=== PATIENT | female | born 1955 | race Caucasian/White ===

== ENCOUNTER 2016-04-01 18:05 | Emergency (ER) | payer SELFPAY ==
[~2016-04-01] VITALS: Ht 167.6 cm; Wt 80.7 kg
[2016-04-02] MEDS ORDERED: SODIUM CHLORIDE 0.9% 1,000 ML IV ONE (01:15)
[2016-04-02] MEDS ORDERED: PROMETHAZINE HCL 25 MG/ML 1ML IV ONE (01:15)
[2016-04-02] MEDS ORDERED: HYDROmorphone HCL 2 MG/ML VL IV ONE (01:15)
[2016-04-02] MEDS ORDERED: MORPHINE SULFATE 4 MG/ML SYRG IV ONE (02:00)
[2016-04-02 03:40] VITALS: BP 165/82
== END 2016-04-02 03:52 | disposition home or self-care (01) ==
LOC: ER 18:07
DX: G43.909 Migraine, unspecified, not intractable, without status migrainosus (principal); F17.210 Nicotine dependence, cigarettes, uncomplicated; Z59.0 Homelessness
CPT/HCPCS: 93005; 96361; 96374; 96375; 99285; J1170; J2270; J2550; J7030

== ENCOUNTER 2016-04-02 19:39 | Emergency (ER) | payer SELFPAY ==
[~2016-04-02] VITALS: Ht 167.6 cm; Wt 90.7 kg
[2016-04-02] MEDS ORDERED: PROMETHAZINE HCL 25 MG/ML 1ML IV ONE (22:15)
[2016-04-02] MEDS ORDERED: BUTORPHANOL TARTRATE 2 MG/1 ML VIAL IV ONE (22:15)
[2016-04-02] MEDS ORDERED: SODIUM CHLORIDE 0.9% 1,000 ML IV ONE (22:15)
[2016-04-03] MEDS ORDERED: PROMETHAZINE HCL 25 MG/ML 1ML IV ONE (00:30)
[2016-04-03] MEDS ORDERED: BUTORPHANOL TARTRATE 2 MG/1 ML VIAL IV ONE (00:30)
[2016-04-03 02:15] VITALS: BP 112/65
== END 2016-04-03 02:20 | disposition home or self-care (01) ==
LOC: ER 19:45
DX: G43.909 Migraine, unspecified, not intractable, without status migrainosus (principal); R11.2 Nausea with vomiting, unspecified; F17.210 Nicotine dependence, cigarettes, uncomplicated; Z87.11 Personal history of peptic ulcer disease; Z88.1 Allergy status to other antibiotic agents; Z88.6 Allergy status to analgesic agent; Z88.8 Allergy status to other drugs, medicaments and biological substances; Z91.041 Radiographic dye allergy status; Z88.0 Allergy status to penicillin; Z91.09 Other allergy status, other than to drugs and biological substances
CPT/HCPCS: 96361; 96374; 96375; 96376; 99285; J0595; J2550; J7030